=== PATIENT | female | born 1960 | race Caucasian/White ===

== ENCOUNTER 2018-09-09 14:00 | Inpatient (IN) | payer OTHER ==
[~2018-09-09] VITALS: Ht 170.2 cm; Wt 55.8 kg
[2018-09-09 14:00] VITALS: BP 108/62
--- NOTE | 2018-09-09 14:15 | NUR ---
BIBA FOR SIEZURE. PER MEDIC PT HAD 1 SIEZURE LASTING 40 SECONDS, STAFF UNABLE TO TO TELL WHAT TYPE OF SIEZURE PT HAD. PT FIRST SIEZURE. PT NON-VERBAL, UNCONTROLLED LEG MOVEMENT. GCS 10. SIEZURE PRECAUTION IN PLACE. BED IS DOWN, LOCKED, BED RAIL X 2, ERMD NOTIFIED. MEDHX:WENNICKE'S ENCEPHALOPATHY, PSYCHOSIS, DEPRESSION, GBS, GERD, SUBSTANCE ABUSE, RX:ATIVAN, BENZOTROPIN, LACTULOSE, RESPERDAL, PANTOPRAZOLE, ZOLOFT
--- NOTE | 2018-09-09 14:16 | NUR ---
PT ON 2 L NC
[2018-09-09] MEDS ORDERED: levETIRAcetam 1,000 MG in NACL 0.9% 100 ML IV ONE (15:05)
--- NOTE | 2018-09-09 15:26 | NUR ---
XRAY AT BEDSIDE
[2018-09-09 15:31] LABS: BASOPHILS % (AUTO) 0.2 % (0.0-2.0); EOSINOPHILS % (AUTO) 0.3 % (0.0-4.0); HEMATOCRIT 40.5 % (36-48); HEMOGLOBIN 13.7 g/dL (12.0-16.0); LYMPHOCYTES # (AUTO) 1.5 K/uL (2.5-16.5); MEAN CORPUSCULAR HEMOGLOBIN 32 pg (27-31); MEAN CORPUSCULAR HGB CONC 34 g/dL (33-37); MEAN CORPUSCULAR VOLUME 94.4 fL (80-94); MONOCYTES # (AUTO) 0.3 K/uL (0.8-1.0); MONOCYTES % (AUTO) 4.1 % (1.7-9.3); NEUTROPHILS # (AUTO) 5.7 K/uL (1.8-7.7); NEUTROPHILS % (AUTO) 75.4 % (42.2-75.2); PLATELET COUNT (AUTO) 217 K/uL (140-450); RED BLOOD CELL COUNT(AUTO) 4.29 MIL/uL (4.20-5.40); RED CELL DISTRIBUTION WIDTH 12.6 % (11.6-13.7); WHITE BLOOD COUNT (AUTO) 7.6 K/uL (4.8-10.8)
[2018-09-09] MEDS ORDERED: levETIRAcetam 100 MG/ML VIAL IV ONE ×2 (15:33→15:39)
[2018-09-09 15:36] LABS: ANION GAP 14.4 (8-16); CARBON DIOXIDE 25.9 mmol/L (21-32); CREATININE 0.6 mg/dL (0.6-1.3); POTASSIUM 4.3 mmol/L (3.5-5.1)
[2018-09-09 15:42] LABS: ALBUMIN 3.4 g/dL (3.4-5.0); TOTAL BILIRUBIN 0.5 mg/dL (0.0-1.0)
--- NOTE | 2018-09-09 15:52 | NUR ---
URINE COLLECTED VIA STRAIGHT CATH
--- NOTE | 2018-09-09 19:12 | NUR ---
Patient will be admitted to care of [facility]. Admited to tele. Will go to room 199b. Belongings list completed. Report to yasemin francisco.
[2018-09-09 19:15] VITALS: BP 120/81
--- NOTE | 2018-09-09 19:15 | NUR ---
RECEIVED REPORT FROM ER NURSE. PATIENT IN CHRONIC VEGETATIVE STATE AND NON-VERBAL. RESPIRATION EVEN UNLABORED ON O2 2L VIA NC. SKIN IS WARM AND DRY. IV PATENT AND INTACT. UNABLE TO OBTAINED INFORMATION DUE TO PATIENT CONDITION. TRIED CALLING THE SNF FACILITY TO OBTAIN MORE INFORMATION REGARDING PATIENT PAST MEDICAL HISTORY. NO RESPONSE AT THIS MOMENT. WILL CONTINUE TO FOLLOW UP. ALL SAFETY MEASURES ARE IN PLACE. SEIZURES PRECAUTION IN PLACE. SIDE RAILS PADDED. FALL RISK PROTOCOL IN PLACE. BED ALARM ON. BED IS AT LOW POSITION. CALL LIGHT WITHIN REACH. WILL CONTINUE TO MONITOR.
[2018-09-09] MEDS ORDERED: ONDANSETRON 4 MG/2 ML VIAL IVP PRN (20:10)
[2018-09-09] MEDS ORDERED: HYDROcodone/APAP 5/325 MG 1 TAB TAB PO PRN (20:10)
[2018-09-09] MEDS ORDERED: ACETAMINOPHEN 325 MG TAB PO PRN (20:10)
--- NOTE | 2018-09-09 21:00 | NUR ---
PATIENT SLEEPING RESPIRATION EVEN UNLABORED ON ROOM AIR. NO DISTRESS NOTED. WILL CONTINUE TO MONITOR.
--- NOTE | 2018-09-09 23:58 | NUR ---
CHECKED PATIENT. VITALS WERE TAKEN. PATIENT CONDITION STABLE. NO DISTRESS NOTED. ALL SAFETY MEASURES ARE IN PLACE. WILL CONTINUE TO MONITOR.
[2018-09-10] VITALS: BP 138/63
--- NOTE | 2018-09-10 01:47 | NUR ---
CHECKED PATIENT. PATIENT SLEEPING RESPIRATION EVEN UNLABORED ON O2 2L VIA NC. NO DISTRESS NOTED AT THIS TIME. WILL CONTINUE TO MONITOR.
[2018-09-10 04:00] VITALS: BP 88/58
--- NOTE | 2018-09-10 04:00 | NUR ---
VITALS WERE TAKEN. PATIENT SLEEPING RESPIRATION EVEN UNLABORED ON O2 2L NC. NO DISTRESS NOTED. WILL CONTINUE TO MONITOR.
--- NOTE | 2018-09-10 06:29 | NUR ---
RECHECKED PATIENT VITALS BP 92/55 T 98 SPO2 96 RR 16 P 58, NO DISTRESS NOTED. WILL CONTINUE TO MONITOR
--- NOTE | 2018-09-10 07:10 | NUR ---
RECEIVED PT REPORT FROM PRODUCTION OPERATIONS MANAGER NURSE. PT IS ASLEEP, ON 2 L O2 NC. NO S/S OF ACUTE DISTRESS NOTED AT THIS TIME. SKIN IS INTACT. PT HAS A RFA IV SITE ON 20 G, SALINE LOCKED AT THIS TIME. PT IS NONVERBAL AND IN CHRONIC VEGETATIVE STATE. SEIZURE AND FALL PRECAUTIONS IN PLACE. CALL LIGHT IS WITHIN REACH. WILL CONTINUE TO MONITOR PT.
[2018-09-10 07:20] LABS: BASOPHILS % (AUTO) 0.1 % (0.0-2.0); EOSINOPHILS # (AUTO) 0.1 K/uL (0-0.4); EOSINOPHILS % (AUTO) 0.5 % (0.0-4.0); HEMATOCRIT 37.5 % (36-48); HEMOGLOBIN 12.7 g/dL (12.0-16.0); LYMPHOCYTES # (AUTO) 2.6 K/uL (2.5-16.5); LYMPHOCYTES % (AUTO) 23.9 % (20.5-51.1); MEAN CORPUSCULAR HEMOGLOBIN 32 pg (27-31); MEAN CORPUSCULAR HGB CONC 34 g/dL (33-37); MEAN CORPUSCULAR VOLUME 93.7 fL (80-94); MONOCYTES # (AUTO) 1.1 K/uL (0.8-1.0); MONOCYTES % (AUTO) 10.1 % (1.7-9.3); NEUTROPHILS # (AUTO) 7.2 K/uL (1.8-7.7); NEUTROPHILS % (AUTO) 65.4 % (42.2-75.2); PLATELET COUNT (AUTO) 216 K/uL (140-450); RED BLOOD CELL COUNT(AUTO) 4.01 MIL/uL (4.20-5.40); RED CELL DISTRIBUTION WIDTH 12.4 % (11.6-13.7)
--- NOTE | 2018-09-10 07:21 | NUR ---
ENDORSED PATIENT TO DAY SHIFT NURSE FOR CONTINUITY OF CARE. PATIENT STABLE AT THIS TIME
[2018-09-10 07:49] LABS: ANION GAP 11.8 (8-16); CARBON DIOXIDE 27.3 mmol/L (21-32); CREATININE 0.6 mg/dL (0.6-1.3); POTASSIUM 4.1 mmol/L (3.5-5.1)
[2018-09-10 08:00] VITALS: BP 95/61
[2018-09-10 12:00] VITALS: BP 107/77
--- NOTE | 2018-09-10 12:30 | NUR ---
PT EATING LUNCH WITH ASSISTANCE FROM HIS DAUGHTER. PT ATE 95% OF HIS LUNCH. Addendum: 09/10/18 at 1358 by Floridalma Khanna RN CHARTED ON WRONG PT
--- NOTE | 2018-09-10 12:35 | NUR ---
PT EATING LUNCH WITH ASSISTANCE FROM UZAIR
--- NOTE | 2018-09-10 13:55 | NUR ---
PT HAS DISCHARGED. DC INSTRUCTIONS WERE GIVEN TO PT AND HIS DAUGHTER, THEY VERBALIZED UNDERSTANDING OF DC TEACHING. PRESCRIPTIONS GIVEN. IV SITE WAS DC'D, WRIST BANDS REMOVED. PT LEFT WITH ALL HIS BELONGINGS WITH HIS DAUGHTER IN STABLE CONDITION. Addendum: 09/10/18 at 1358 by Floridalma Khanna RN CHARTED ON WRONG PT
[2018-09-10 16:00] VITALS: BP 94/68
[2018-09-10] MEDS: LORazepam 2 MG/ML VIAL IVP PRN (17:13)
[2018-09-10] MEDS: PIPER/TAZO 3.375GM/D5W PREMIX 50 ML IV SCH ×2 (17:14→23:14)
--- NOTE | 2018-09-10 18:10 | NUR ---
OBTAINED URINE SAMPLE VIA STRAIGHT CATH AND SENT TO LAB PER MD ORDER.
--- NOTE | 2018-09-10 18:20 | NUR ---
PT EATING DINNER WITH ASSISTANCE FROM INTERFACE CONTROL OFFICER. NO S/S OF ACUTE DISTRESS AT THIS TIME, CALL LIGHT IS WITHIN REACH.
[2018-09-10 18:42] LABS: APPEARANCE,URINE CLEAR (CLEAR); BILIRUBIN,URINE NEGATIVE (NEGATIVE); BLOOD, URINE NEGATIVE (NEGATIVE); COLOR,URINE YELLOW (YELLOW); LEUKOCYTE ESTERASE ,URINE NEGATIVE (NEGATIVE); NITRITE, URINE POSITIVE (NEGATIVE); UGLUCOSE NEGATIVE (NEGATIVE)
--- NOTE | 2018-09-10 19:10 | NUR ---
PT ENDORSED TO TEACHING AIDE NURSE IN STABLE CONDITION.
--- NOTE | 2018-09-10 19:20 | NUR ---
RECEIVED ENDORSEMENT FROM AM SHIFT RN; PATIENT A/Ox1, UNABLE TO COMMUNICATE, BEDBOUND AND IN HIGH FOWLERS POSITION. INTRODUCED SELF AND UPDATED BOARD. NO SOB OR DISTRESS NOTED; PATIENT ON O2 AT 2LPM VIA NASAL CANNULA. IV SITE ON RIGHT FOREARM, 20 GAUGE, RUNNING IVF AT 10mL/HR. SKIN INTACT. BED IN THE LOWEST POSITION, CALL LIGHT WITHIN REACH. INITIAL ASSESSMENT DONE. WILL CONTINUE TO MONITOR.
[2018-09-10 20:00] VITALS: BP 104/65
--- NOTE | 2018-09-10 20:30 | NUR ---
VITALS TAKEN, NO DISTRESS NOTED.
--- NOTE | 2018-09-10 22:00 | NUR ---
PATIENT WAS CLEANED, LINENS AND CHUX CHANGED, REPOSITIONED. TOLERATED WELL.
--- NOTE | 2018-09-10 23:30 | NUR ---
VITALS TAKEN, BP 73/42. PLACED PATIENT IN [place] POSITION. WILL CONTINUE TO MONITOR. Addendum: 09/11/18 at 0006 by Agustín Alamo RN IV ZOSYN ALSO GIVEN AT THIS TIME
[2018-09-11] VITALS: BP 95/58
--- NOTE | 2018-09-11 00:01 | NUR ---
VITALS RECHECKED, BP 95/58. WILL CONTINUE TO MONITOR.
--- NOTE | 2018-09-11 00:47 | NUR ---
RECHECKED BP, 98/69. WILL CONTINUE TO MONITOR.
--- NOTE | 2018-09-11 02:10 | NUR ---
FREQUENT CHECKS MADE. PATIENT ASLEEP, EYES CLOSED, VISIBLE CHEST RISE AND FALL NOTED.
--- NOTE | 2018-09-11 03:50 | NUR ---
VITALS TAKEN, NO DISTRESS NOTED. BP 96/63. WILL CONTINUE TO MONITOR.
[2018-09-11 03:56] VITALS: BP 96/63
--- NOTE | 2018-09-11 04:50 | NUR ---
PATIENT CLEANED, CHUX AND LINENS WERE CHANGED, REPOSITIONED. TOLERATED WELL.
[2018-09-11] MEDS: PIPER/TAZO 3.375GM/D5W PREMIX 50 ML IV SCH ×3 (05:10→17:33)
[2018-09-11 07:15] LABS: BASOPHILS % (AUTO) 0.3 % (0.0-2.0); EOSINOPHILS # (AUTO) 0.1 K/uL (0-0.4); EOSINOPHILS % (AUTO) 1.1 % (0.0-4.0); HEMATOCRIT 37.3 % (36-48); HEMOGLOBIN 12.6 g/dL (12.0-16.0); LYMPHOCYTES # (AUTO) 2.4 K/uL (2.5-16.5); LYMPHOCYTES % (AUTO) 39.8 % (20.5-51.1); MEAN CORPUSCULAR HEMOGLOBIN 32 pg (27-31); MEAN CORPUSCULAR HGB CONC 34 g/dL (33-37); MONOCYTES # (AUTO) 0.7 K/uL (0.8-1.0); MONOCYTES % (AUTO) 12.4 % (1.7-9.3); NEUTROPHILS # (AUTO) 2.8 K/uL (1.8-7.7); NEUTROPHILS % (AUTO) 46.4 % (42.2-75.2); PLATELET COUNT (AUTO) 206 K/uL (140-450); RED BLOOD CELL COUNT(AUTO) 3.93 MIL/uL (4.20-5.40); RED CELL DISTRIBUTION WIDTH 12.8 % (11.6-13.7)
--- NOTE | 2018-09-11 07:15 | NUR ---
RECEIVED PT REPORT FROM COMPOSITION PROFESSOR NURSE. PT IS ASLEEP, NO S/S OF ACUTE DISTRESS OR SOB NOTED. SEIZURE AND FALL PRECAUTIONS ARE IN PLACE. SKIN IS INTACT, PT IS ON 2L O2 NC. IV SITE ON RFA, 20 G, SALINE LOCKED. CALL LIGHT IS WITHIN REACH. WILL CONTINUE TO MONITOR.
--- NOTE | 2018-09-11 07:20 | NUR ---
ENDORSED PATIENT TO AM SHIFT RN; PATIENT IN STABLE CONDITION.
[2018-09-11] MEDS ORDERED: MULT15LI1 GT (07:38)
[2018-09-11] MEDS ORDERED: SERT25TA PO (07:38)
[2018-09-11] MEDS ORDERED: RIS1 PO (07:38)
[2018-09-11] MEDS ORDERED: [UNRECOGNIZED DRUG - CODE] (07:38)
[2018-09-11 08:00] VITALS: BP 92/61
[2018-09-11 08:09] LABS: ANION GAP 11.9 (8-16); CARBON DIOXIDE 27.2 mmol/L (21-32); CREATININE 0.8 mg/dL (0.6-1.3); POTASSIUM 4.1 mmol/L (3.5-5.1); TOTAL BILIRUBIN 1.5 mg/dL (0.0-1.0)
--- NOTE | 2018-09-11 08:29 | NUR ---
PATIENT HAS BEEN SCREENED AND CATEGORIZED MODERATE NUTRITION RISK. PATIENT WILL BE SEEN WITHIN 3-5 DAYS OF ADMISSION. 09/12/18ROXANA CONNER RD
[2018-09-11 12:00] VITALS: BP 94/66
--- NOTE | 2018-09-11 12:28 | NUR ---
PT ATE 100% OF HER LUNCH WITH ASSISTANCE FROM TUGBOAT MATE.
--- NOTE | 2018-09-11 13:05 | NUR ---
SCHEDULED IV ZOSYN HUNG. PT IS IN NO APPARENT DISTRESS, NO SOB. WILL CONTINUE TO MONITOR.
[2018-09-11] MEDS: DEXT 5% / NACL 0.45% 1,000 ML IV SCH ×2 (14:21→23:50)
[2018-09-11 16:00] VITALS: BP 107/64
[2018-09-11] MEDS ORDERED: SODIUM CHLORIDE 3% 4 ML SOL INH SCH (16:15)
--- NOTE | 2018-09-11 16:50 | NUR ---
LOC CONFUSED HHN THERAPY GIVEN ORDERED FIR SPUTUM INDUCTION SPECIMEN CUP AT BEDSIDE NADER/RN AWARE
[2018-09-11] MEDS: LORazepam 2 MG/ML VIAL IVP PRN (16:58)
--- NOTE | 2018-09-11 18:24 | NUR ---
PT'S IV DISLODGED. NEW IV INSERTED, L WRIST 22 GAUGE. PATENT AND INTACT.
--- NOTE | 2018-09-11 19:20 | NUR ---
PT ENDORSED TO PUBLIC STENOGRAPHER IN STABLE CONDITION.
--- NOTE | 2018-09-11 19:35 | NUR ---
RECEIVED FROM AM RN IN BED SLEEPING. PT. WITH 02 AT 2LPM/NC. DX. OF SEIZURE DISORDER. TELEMETRY MONITORING. WITH PADDED SIDE RAILS FOR SEIZURE PROTECTION. IVF SITE INTACT AND NEWLY INSERTED BY AM RN TO LEFT HAND #22 WITH GOOD BLOOD RETURN. PT. MOANS WHEN TOUCHED. REFUSED TO OPEN EYES. NEEDS WILL BE ANTICIPATED AND WILL BE MET.
[2018-09-11 21:07] VITALS: BP 90/60
--- NOTE | 2018-09-11 23:30 | NUR ---
PT. CLEANED UP BY HAIR SPECIALIST AND NURSE . IVF SITE TO LEFT WRIST #[address] AND WITH GOOD BLOOD RETURN. INCONTINENT. KEPT CLEAN AND DRY. RESISTANT TO PERSONAL HYGIENE CARE. MOANS AND DOES NOT VERBALIZE . TURNED TO SIDES Q 2H WITH PILLOW SUPPORT TO PRESSURE AREAS. TELEMETRY MONITORING. NEEDS WILL BE ANTICIPATED AND MET.
[2018-09-12] VITALS (7 sets, daily range): BP systolic 93–129; BP diastolic 58–86
[2018-09-12] MEDS: PIPER/TAZO 3.375GM/D5W PREMIX 50 ML IV SCH ×4 (00:01→18:04)
--- NOTE | 2018-09-12 02:06 | NUR ---
PT. FOR CT SCAN BRAIN ORDERED. MEGHAN SONOSCOPE OPERATOR IN HERE TO DIRECTOR OF QUALITY CONTROL PT.
--- NOTE | 2018-09-12 03:04 | NUR ---
PT. BACK FROM CT SCAN HEAD. HOOKED BACK IV FLUID. NO RESTLESSNESS. SLEPT BACK EASILY.
--- NOTE | 2018-09-12 04:40 | NUR ---
SLEEPING AT THIS TIME. WAKES UP WHEN TOUCHED. GETS UPSET WHEN AWAKENED. TELEMETRY MONITORING. NEEDS ANTICIPATED.
[2018-09-12] MEDS: DEXT 5% / NACL 0.45% 1,000 ML IV SCH ×2 (04:44→21:17)
--- NOTE | 2018-09-12 06:22 | NUR ---
BEEN SLEEPING WELL THIS SHIFT. CT SCAN OF HEAD WITHOUT CONTRAST DONE. AM PERSONAL HYGIENE RENDERED. NEEDS ANTICIPATED AND MET. WILL ENDORSE TO THE NEXT RN FOR CONTINUITY OF CARE. TELEMETRY MONITORING.
--- NOTE | 2018-09-12 07:00 | NUR ---
RECEIVED REPORT FROM NIGHT RN. PT RESTING IN BED. AAOX4. NO S/S OF ACUTE DISTRESS. FLACC-0. IV SITE PATENT AND INTACT. PT ON RA. CALL LIGHT WITHIN REACH. SAFETY MEASURES ENSURED. WILL CONTINUE TO MONITOR. Addendum: 09/12/18 at 1025 by Olayinka Flores RN AAOX1
[2018-09-12 07:25] LABS: BASOPHILS % (AUTO) 0.4 % (0.0-2.0); EOSINOPHILS # (AUTO) 0.1 K/uL (0-0.4); EOSINOPHILS % (AUTO) 1.1 % (0.0-4.0); HEMATOCRIT 36.8 % (36-48); HEMOGLOBIN 12.3 g/dL (12.0-16.0); LYMPHOCYTES # (AUTO) 2.2 K/uL (2.5-16.5); LYMPHOCYTES % (AUTO) 40.1 % (20.5-51.1); MEAN CORPUSCULAR HEMOGLOBIN 32 pg (27-31); MEAN CORPUSCULAR HGB CONC 34 g/dL (33-37); MEAN CORPUSCULAR VOLUME 94.4 fL (80-94); MONOCYTES # (AUTO) 0.6 K/uL (0.8-1.0); MONOCYTES % (AUTO) 11.4 % (1.7-9.3); NEUTROPHILS # (AUTO) 2.6 K/uL (1.8-7.7); PLATELET COUNT (AUTO) 202 K/uL (140-450); RED CELL DISTRIBUTION WIDTH 12.5 % (11.6-13.7); WHITE BLOOD COUNT (AUTO) 5.4 K/uL (4.8-10.8)
[2018-09-12 07:51] LABS: ANION GAP 13.2 (8-16); CARBON DIOXIDE 26.1 mmol/L (21-32); CREATININE 0.7 mg/dL (0.6-1.3); POTASSIUM 4.3 mmol/L (3.5-5.1)
--- NOTE | 2018-09-12 10:07 | NUR ---
PT RESTING IN BED. NO S/S OF ACUTE DISTRESS. FLACC-0. CALL LIGHT WITHIN REACH. SAFETY MEASURES ENSURED. WILL CONTINUE TO MONITOR.
--- NOTE | 2018-09-12 11:43 | NUR ---
Licensing Registration Examiner Note: I called and spoke with conference service coordinator Norma from [facility] . Per Norma, patient is on a 7 day bed hold and is one of their shelter patients. She stated patient has been living at their facility since 07/14/17 and she does not know if patient has an existing Advance Directive for health care. I spoke with Lissette from Medical Records Dept at [facility], she stated she will find out if patient has an existing Advance Directive for health care and call me back. I provided Lissette with my contact information.
--- NOTE | 2018-09-12 13:49 | NUR ---
Jewel Waxer Note Per Lissette from Medical Records Dept at [facility] , patient does not have an existing Advance Directive for health care. I called patient's son Jaycob to discuss patient's tentative discharge plan, no answer, left message (please see MD's order regarding Jaycob's request).
--- NOTE | 2018-09-12 13:50 | NUR ---
PATIENT RESTLESS IN BED. NO S/S OF ACUTE DISTRESS. PT'S IV INFILTRATED IVF. NO REDNESS OR PAIN ON PALPATION. CALL LIGHT WITHIN REACH. SAFETY MEASURES ENSURED. WILL CONTINUE TO MONITOR
[2018-09-12] MEDS: LORazepam 2 MG/ML VIAL IVP PRN (15:31)
--- NOTE | 2018-09-12 16:00 | NUR ---
Instructor Trainer Canine Service Note: I called and spoke with Makeda from [facility] , no middle or intermediate school principal beds available at this time. I called and spoke with Robert from [facility] , no alf beds available at this time. I received a call from patient's son Jaycob . I explained to him I had contacted [facility] and [facility] and was informed they do not have any alf beds available currently. I explained to him these type of beds are limited. He verbalized understanding. He stated he is in agreement with patient returning to [facility] upon discharge. I called and spoke with patient's brother Fer Keith , he stated patient does not have an existing Advance Directive for health care and he is okay with patient's son Jaycob making patient's medical decisions.
--- NOTE | 2018-09-12 17:51 | NUR ---
PT RESTING IN BED. NO S/S OF ACUTE DISTRESS. FLACC-0. CALL LIGHT WITHIN REACH. SAFETY MEASURES ENSURED. WILL CONTINUE TO MONITOR.
--- NOTE | 2018-09-12 19:30 | NUR ---
RECEIVED FROM AM RN IN BED AWAKE . NONE VERBAL. NEEDS WILL BE ANTICIPATED AND MET. TOTAL CARE. WITH PADDED SIDERAILS FOR SEIZURE PRECAUTIONS. NEW IVF SITE INTACT AND WITH GOOD BLOOD RETURN.
--- NOTE | 2018-09-12 22:33 | NUR ---
PT. SO AWAKE AND MAKING NOISE . APHASIC. PT. TURNED TO SIDE BY CNAS AND CLEANED RT WET WITH URINE. NEEDS WILL BE ANTICIPATED AND WILL BE MET. TOTAL CARE. BED ALARM ON. TELEMETRY MONITORING.
[2018-09-13] MEDS: PIPER/TAZO 3.375GM/D5W PREMIX 50 ML IV SCH ×4 (00:07→17:52)
--- NOTE | 2018-09-13 00:08 | NUR ---
PT. SLEEPING AT THIS TIME.
--- NOTE | 2018-09-13 02:00 | NUR ---
PT. CARE RENDERED BY SOLAR ENERGY ENGINEER RT WET BED LINEN FROM URINE. TOTAL CARE. WENT BACK TO SLEEP EASILY.
[2018-09-13 04:00] VITALS: BP 116/80
--- NOTE | 2018-09-13 04:00 | NUR ---
PT. SLEEPING WELL AT THIS TIME. NO SOB. WAKES UP EASILY WHEN TOUCHED. TOTAL CARE.
[2018-09-13] MEDS: DEXT 5% / NACL 0.45% 1,000 ML IV SCH ×3 (05:32→22:49)
--- NOTE | 2018-09-13 05:50 | NUR ---
PT. AM PERSONAL HYGIENE RENDERED BY CNAS. BED LINEN CHANGED RT HAD URINATED . KEPT CLEAN , COMFORTABLE AND DRY. COMFORTABLE NOW. WENT BACK TO SLEEP AFTER. NO SEIZURES THIS SHIFT. TELEMETRY MONITORING.
--- NOTE | 2018-09-13 06:29 | NUR ---
PT. TOTAL CARE. APHASIC. NO SEIZURES NOTED THIS SHIFT. NEEDS ANTICIPATED AND MET. AFEBRILE. IVF SITE TO RIGHT FOREARM WITH GOOD BLOOD RETURN. TURNED TO SIDES Q 2H. PILLOW SUPPORT TO PRESSURE AREAS. BED ALARM ON ALL NIGHT. WILL ENDORSE TO AM RN FOR CONTINUITY OF CARE.
[2018-09-13 07:17] LABS: BASOPHILS % (AUTO) 0.3 % (0.0-2.0); EOSINOPHILS # (AUTO) 0.1 K/uL (0-0.4); EOSINOPHILS % (AUTO) 1.1 % (0.0-4.0); HEMATOCRIT 40.1 % (36-48); HEMOGLOBIN 13.5 g/dL (12.0-16.0); LYMPHOCYTES # (AUTO) 1.7 K/uL (2.5-16.5); LYMPHOCYTES % (AUTO) 34.8 % (20.5-51.1); MEAN CORPUSCULAR HEMOGLOBIN 32 pg (27-31); MEAN CORPUSCULAR HGB CONC 34 g/dL (33-37); MEAN CORPUSCULAR VOLUME 93.8 fL (80-94); MONOCYTES # (AUTO) 0.5 K/uL (0.8-1.0); MONOCYTES % (AUTO) 10.1 % (1.7-9.3); NEUTROPHILS # (AUTO) 2.6 K/uL (1.8-7.7); NEUTROPHILS % (AUTO) 53.7 % (42.2-75.2); PLATELET COUNT (AUTO) 215 K/uL (140-450); RED BLOOD CELL COUNT(AUTO) 4.27 MIL/uL (4.20-5.40); RED CELL DISTRIBUTION WIDTH 12.6 % (11.6-13.7); WHITE BLOOD COUNT (AUTO) 4.9 K/uL (4.8-10.8)
[2018-09-13 07:18] LABS: CARBON DIOXIDE 26.1 mmol/L (21-32); CREATININE 0.7 mg/dL (0.6-1.3); POTASSIUM 4.1 mmol/L (3.5-5.1)
--- NOTE | 2018-09-13 07:34 | NUR ---
RECEIVED BEDSIDE REPORT FROM COMMERCIAL PRINT SALESMAN RN FOR CONTINUITY OF CARE. PT IN STABLE CONDITION. FLACC 0. NONVERBAL PER COMMERCIAL PRINT SALESMAN RN. AOX1. NO S/S DISTRESS. RESPIRATIONS EVEN AND UNLABORED. ACTIVE BS IN ALL QUADRANTS. ABDOMEN SOFT AND NON-DISTENDED. SKIN INTACT. PER COMMERCIAL PRINT SALESMAN RN, PT IS BEDBOUND AND INCONTINENT. IV SITE PATENT AND ASYMPTOMATIC, INFUSING IVF PER MD ORDERS. ALL SAFETY PRECAUTIONS IN PLACE, WILL CONTINUE TO MONITOR.
[2018-09-13 08:00] VITALS: BP 112/73
--- NOTE | 2018-09-13 11:17 | NUR ---
HR GOES DOWN TO 40S. PT ABLE TO BE AROUSED AND HR GOES UP. VITALS STABLE BP 103/65, HR 53, RR 18, TEMP 97.6 AXILLARY, SPO2 95% ON 2L. DEAN OF INSTRUCTION HAS ALREADY BEEN CONSULTED FOR BRADYCARDIA.
--- NOTE | 2018-09-13 11:35 | NUR ---
PT RESTING IN BED, RESPIRATIONS EVEN AND UNLABORED. AROUSABLE BY TOUCH. WHEN ASKED IF SHE IS OKAY, PATIENT REPLIED "YES".
[2018-09-13 12:00] VITALS: BP 103/65
--- NOTE | 2018-09-13 12:46 | NUR ---
PT TURNED AND CLEANED IN BED. ALL SAFETY PRECAUTIONS IN PLACE, WILL CONTINUE TO MONITOR.
--- NOTE | 2018-09-13 13:52 | NUR ---
PT'S HR IN HIGH 40S NOW. WILL CONTINUE TO MONITOR. PT RESTING IN BED, RESPIRATIONS EVEN AND UNLABORED.
--- NOTE | 2018-09-13 14:40 | NUR ---
09/13/18 RD INITIAL ASSESSMENT COMPLETED PLEASE REFER TO NUTRITION ASSESSMENT UNDER CARE ACTIVITY FOR ESTIMATED NUTRITIONAL NEEDS. 1. CONTINUE REGULAR DIET TOLERATED 2. RECOMMEND THIAMIN, VITAMIN B1 SUPPLEMENTATION FOR WERNICKE�S ENCEPHALOPATHY 3. RD TO FOLLOW-UP 3-5 DAYS, MODERATE RISK ROXANA CONNER, RD
[2018-09-13 16:00] VITALS: BP 114/73
--- NOTE | 2018-09-13 16:14 | NUR ---
PATIENT AWAKE IN BED, STARING AT TV. VITALS STABLE. HR 74 NOW. ALL SAFETY PRECAUTIONS IN PLACE, WILL CONTINUE TO MONITOR.
--- NOTE | 2018-09-13 19:20 | NUR ---
ENDORSED POC TO MORTISING MACHINE OPERATOR RN. PT IN STABLE CONDITION.
--- NOTE | 2018-09-13 19:35 | NUR ---
RECEIVED BEDSIDE REPORT FROM DAY SHIFT NURSE FOR CONTINUITY OF CARE. PATIENT AWAKE, NONVERBAL AOX1. NO S/S DISTRESS. RESPIRATION EVEN UNLABORED ON O2 2L VIA NC. SKIN IS WARM AND DRY. IV INTACT AND PATENT. PLAN OF CARE WAS DISCUSSED. ALL SAFETY MEASURES IN PLACE. SEIZURE AND FALL PRECAUTION ARE IN PLACE. BED IS AT LOW POSITION. CALL LIGHT WITHIN REACH. WILL CONTINUE TO MONITOR.
[2018-09-13 20:00] VITALS: BP 96/75
--- NOTE | 2018-09-13 20:00 | NUR ---
INITIAL ASSESSMENT DONE. VITALS WERE TAKEN. PATIENT CONDITION STABLE. RT AT BEDSIDE. PATIENT SATING 94-96% ON ROOM AIR. NO NEED FOR O2 ADMINISTRATION AT THIS TIME. WILL CONTINUE TO MONITOR.
--- NOTE | 2018-09-13 21:00 | NUR ---
DR. Steve PATRICIA. ORDER TO CONTINUE HOME MEDS DURING HOSPITAL STAY.
--- NOTE | 2018-09-13 22:40 | NUR ---
PATIENT IS RESTLESS AND AGITATED. PRN ATIVAN ADMINISTERED PER ORDER. WILL CONTINUE TO MONITOR.
[2018-09-13] MEDS: LORazepam 2 MG/ML VIAL IVP PRN (22:48)
--- NOTE | 2018-09-13 23:00 | NUR ---
IV INFILTRATED. NO ACTIVE BLEEDING SEEN. CANNULA IS INTACT. NEW IV INSERTED. RIGHT HAND 24 G. WILL CONTINUE TO MONITOR.
[2018-09-14] VITALS: BP 124/67
--- NOTE | 2018-09-14 | NUR ---
VITALS WERE TAKEN. PATIENT CONDITION STABLE. RESPIRATION EVEN UNLABORED ON ROOM AIR. NO DISTRESS NOTED. WILL CONTINUE TO MONITOR.
--- NOTE | 2018-09-14 02:00 | NUR ---
CHECKED PATIENT. PATIENT SLEEPING RESPIRATION EVEN UNLABORED ON ROOM AIR. NO DISTRESS NOTED. WILL CONTINUE TO MONITOR.
[2018-09-14 04:00] VITALS: BP 115/81
--- NOTE | 2018-09-14 04:00 | NUR ---
VITALS WERE TAKEN. PATIENT CONDITION STABLE. NO DISTRESS NOTED. WILL CONTINUE TO MONITOR.
[2018-09-14 07:16] LABS: BASOPHILS % (AUTO) 0.3 % (0.0-2.0); EOSINOPHILS # (AUTO) 0.1 K/uL (0-0.4); EOSINOPHILS % (AUTO) 1.3 % (0.0-4.0); HEMATOCRIT 40.6 % (36-48); HEMOGLOBIN 13.7 g/dL (12.0-16.0); LYMPHOCYTES # (AUTO) 1.9 K/uL (2.5-16.5); LYMPHOCYTES % (AUTO) 30.6 % (20.5-51.1); MEAN CORPUSCULAR HEMOGLOBIN 32 pg (27-31); MEAN CORPUSCULAR HGB CONC 34 g/dL (33-37); MEAN CORPUSCULAR VOLUME 93.6 fL (80-94); MONOCYTES # (AUTO) 0.6 K/uL (0.8-1.0); MONOCYTES % (AUTO) 9.5 % (1.7-9.3); NEUTROPHILS # (AUTO) 3.6 K/uL (1.8-7.7); NEUTROPHILS % (AUTO) 58.3 % (42.2-75.2); PLATELET COUNT (AUTO) 222 K/uL (140-450); RED BLOOD CELL COUNT(AUTO) 4.34 MIL/uL (4.20-5.40); RED CELL DISTRIBUTION WIDTH 12.4 % (11.6-13.7); WHITE BLOOD COUNT (AUTO) 6.2 K/uL (4.8-10.8)
--- NOTE | 2018-09-14 07:22 | NUR ---
ENDORSED PATIENT TO DAY SHIFT NURSE FOR CONTINUITY OF CARE. PATIENT CONDITION STABLE.
--- NOTE | 2018-09-14 07:25 | NUR ---
RECEIVED BEDSIDE REPORT FROM OTOLARYNGOLOGY TEACHER RN FOR CONTINUITY OF CARE. PT IN STABLE CONDITION. FLACC 0. AOX1. PATIENT IS MINIMALLY VERBAL. AWAKE AT THIS TIME, EYES OPENING SPONTANEOUSLY. NO S/S DISTRESS. RESPIRATIONS EVEN AND UNLABORED. ACTIVE BS IN ALL QUADRANTS. ABDOMEN SOFT AND NON-DISTENDED. SKIN INTACT. PT IS BEDBOUND AND INCONTINENT. IV SITE PATENT AND ASYMPTOMATIC, INFUSING IVF PER MD ORDERS. ALL SAFETY PRECAUTIONS IN PLACE, WILL CONTINUE TO MONITOR.
[2018-09-14 07:43] LABS: ANION GAP 13.7 (8-16); CARBON DIOXIDE 26.4 mmol/L (21-32); CREATININE 0.6 mg/dL (0.6-1.3); POTASSIUM 4.1 mmol/L (3.5-5.1)
[2018-09-14 08:00] VITALS: BP 117/80
[2018-09-14] MEDS ORDERED: MULTIVITAMIN 1 TAB PO SCH (09:00)
[2018-09-14] MEDS ORDERED: risperiDONE 1 MG TAB PO SCH (09:00)
[2018-09-14] MEDS ORDERED: THIAMINE HCL SCH (09:00)
[2018-09-14] MEDS: DEXT 5% / NACL 0.45% 1,000 ML IV SCH (11:56)
[2018-09-14 12:00] VITALS: BP 112/58
--- NOTE | 2018-09-14 15:14 | NUR ---
Flight Director Note: Per Director RN Josefa, patient is not on isolation. I faxed patient's medical information to [facility]. Per Yuliana from [facility] , patient may return to room 603B any time today, accepting physician is , Primary Care Sales Representative Selena made aware. Primary Care Sales Representative Selena will arrange transportation.
--- NOTE | 2018-09-14 15:46 | NUR ---
Spoke with Amira from [facility] AUTH #[id number] for transportation.
--- NOTE | 2018-09-14 15:54 | NUR ---
Transportation arranged with [facility] AUTH# [id number]. Pt will be picked up from room 119 B at 2000 and transported to [facility] room 603 B. Address [address]. [id number]. Tel. # . Charge nurse Lynda torres
[2018-09-14 16:00] VITALS: BP 111/68
--- NOTE | 2018-09-14 16:00 | NUR ---
PATIENT RESTING IN BED, AROUSBLE BY VOICE. NO S/S DISTRESS. WILL CONTINUE TO MONITOR.
--- NOTE | 2018-09-14 18:29 | NUR ---
CALLED [facility] AND GAVE REPORT TO PLIER WORKER TIA. REVIEWED PT CC, DX, PMHX, CODE STATUS, ALLERGIES, IMAGING, PROCEDURES, MEDICATIONS, AND CONTINUED POC AT [facility]. ANSWERED ALL OF TIA PLIER WORKER'S QUESTIONS.TIA PLIER WORKER VERBALIZED COMPLETE UNDERSTANDING OF PATIENT�S POC.
--- NOTE | 2018-09-14 18:32 | NUR ---
PATIENT IS AOX1, CHRONIC VEGETATIVE STATE. UNABLE TO COMPREHEND D/C INSTRUCTIONS OR SIGN. FLU VACCINE AND PNEUMOVAX UP TO DATE.
--- NOTE | 2018-09-14 19:00 | NUR ---
LEFT MESSAGE FOR PERSON TO NOTIFY KELL [phone] INFORMING OF PLANS TO TRANSFER TO [facility].
--- NOTE | 2018-09-14 19:34 | NUR ---
ENDORSED POC TO MACHINE TOOL REBUILDER RN. PT IN STABLE CONDITION.
--- NOTE | 2018-09-14 19:35 | NUR ---
RECEIVED BEDSIDE REPORT FROM DAY SHIFT NURSE FOR CONTINUITY OF CARE. PATIENT IS AWAKE, AOX1, NON-VERBAL AND FLACC 0. RESPIRATION EVEN UNLABORED ON ROOM AIR. SKIN IS WARM AND DRY. IV PATENT AND INTACT. ALL SAFETY MEASURES ARE IN PLACE. PLAN OF CARE WAS DISCUSSED. BED IS AT LOW POSITION. BED ALARM ON. CALL LIGHT WITHIN REACH. WILL CONTINUE TO MONITOR.
[2018-09-14 20:00] VITALS: BP 102/71
--- NOTE | 2018-09-14 20:00 | NUR ---
PATIENT IS LEAVING TODAY AWAITING FOR CHILD SPECIALIST.
--- NOTE | 2018-09-14 20:30 | NUR ---
PATIENT LEFT THE FACILITY WITH HER BELONGINGS VIA GURNEY WITH 2 PERSONNEL FROM [place]. IV REMOVE TIP INTACT. PATIENT CONDITION IS STABLE.
[2018-09-14] MEDS ORDERED: SERTRALINE 50 MG TAB PO SCH (21:00)
== END 2018-09-14 20:30 | DRG 720 ==
LOC: MED 14:00 → MTU 18:30
PROVIDERS: ADMIT Preventive Medicine Preventive Medicine/Occupational Environmental Medicine; ATTEND Preventive Medicine Preventive Medicine/Occupational Environmental Medicine
DX: A41.9 Sepsis, unspecified organism (principal); J96.00 Acute respiratory failure, unspecified whether with hypoxia or hypercapnia; R40.3 Persistent vegetative state; E51.2 Wernicke's encephalopathy; G40.909 Epilepsy, unspecified, not intractable, without status epilepticus; D72.829 Elevated white blood cell count, unspecified; F32.9 Major depressive disorder, single episode, unspecified; K21.9 Gastro-esophageal reflux disease without esophagitis; G62.9 Polyneuropathy, unspecified; F19.10 Other psychoactive substance abuse, uncomplicated; F09 Unspecified mental disorder due to known physiological condition
CPT/HCPCS: 36415; 70450; 71045; 80048; 80053; 81003; 85025; 85651; 86140; 87040; 87081; 87086; 93005; 94640; 95816; 96365; 99285; C1758; J1953; J2060; J2543; J7030; Q0092

== ENCOUNTER 2022-05-15 14:15 | Inpatient (IN) | payer MEDICAID, OTHER ==
[~2022-05-15] VITALS: Ht 154.9 cm; Wt 62.1 kg
[~2022-05-15 14:15] MED LIST: MULT15LI1 GT; RIS1 PO; SERT25TA PO; [UNRECOGNIZED DRUG - CODE]
[2022-05-15] MEDS ORDERED: NACL 0.9% 1,000 ML IV ONE (14:20)
[2022-05-15] MEDS ORDERED: ACETAMINOPHEN 650 MG SUPP RC ONE (14:40)
[2022-05-15] MEDS ORDERED: PIPERACILLIN/TAZOBACTAM 3.375 GM in DEXTROSE 5% 50 ML IV ONE (15:00)
[2022-05-15] MEDS ORDERED: VANCOMYCIN 1,000 MG in DEXTROSE 5% 250 ML IV ONE (15:00)
[2022-05-15 15:05] LABS: BASOPHILS % (AUTO) 0.5 % (0.0-2.0); HEMATOCRIT 33.4 % (36-48); HEMOGLOBIN 11.3 g/dL (12.0-16.0); LYMPHOCYTES # (AUTO) 0.1 K/uL (2.5-16.5); LYMPHOCYTES % (AUTO) 0.7 % (20.5-51.1); MEAN CORPUSCULAR HEMOGLOBIN 31 pg (27-31); MEAN CORPUSCULAR HGB CONC 34 g/dL (33-37); MEAN CORPUSCULAR VOLUME 92.4 fL (80-94); MONOCYTES # (AUTO) 0.1 K/uL (0.8-1.0); MONOCYTES % (AUTO) 1.3 % (1.7-9.3); NEUTROPHILS % (AUTO) 97.5 % (42.2-75.2); PLATELET COUNT (AUTO) 121 K/uL (140-450); RED BLOOD CELL COUNT(AUTO) 3.61 MIL/uL (4.20-5.40); RED CELL DISTRIBUTION WIDTH 12.9 % (11.6-13.7); WHITE BLOOD COUNT (AUTO) 9.2 K/uL (4.8-10.8)
[2022-05-15 15:06] VITALS: BP 91/59
[2022-05-15 15:20] LABS: PROTHROMBIN TIME 12.7 secs (10.8-13.4)
[2022-05-15 15:27] LABS: ALBUMIN 2.1 g/dL (3.4-5.0); ANION GAP 15.9 (8-16); ASPARTATE AMINOTRANSFERASE 57 U/L (15-37); CARBON DIOXIDE 22.8 mmol/L (21-32); CHLORIDE 109 mmol/L (98-107); CREATININE 1.3 mg/dL (0.6-1.3); GFR ARICAN-AMERICAN 53 mL/min (>90); GLUCOSE 106 mg/dL (74-106); POTASSIUM 3.7 mmol/L (3.5-5.1); SODIUM SERUM 144 mmol/L (136-145); TOTAL BILIRUBIN 0.9 mg/dL (0.0-1.0); UREA NITROGEN, BLOOD 39 mg/dL (7-18)
[2022-05-15] MEDS ORDERED: MAGN400S60 PO (15:39)
[2022-05-15] MEDS ORDERED: SENN-72 PO (15:39)
[2022-05-15] MEDS ORDERED: THIA500T9 PO (15:39)
[2022-05-15] MEDS ORDERED: MULT-2611 PO (15:39)
[2022-05-15] MEDS ORDERED: OLAN2.5T1 PO (15:39)
[2022-05-15] MEDS ORDERED: BACL10TA4 PO (15:39)
[2022-05-15] MEDS ORDERED: FLEPED RC (15:39)
[2022-05-15] MEDS ORDERED: ACET-2619 PO (15:39)
[2022-05-15] MEDS ORDERED: GABA100C PO (15:39)
[2022-05-15] MEDS ORDERED: DIVA125E1 PO (15:39)
[2022-05-15] MEDS ORDERED: VANCOMYCIN 1,000 MG VIAL ONE (15:47)
[2022-05-15] MEDS ORDERED: PIPERACILLIN/TAZOBACTAM 3.375 GM VIAL IV ONE (15:47)
[2022-05-15] MEDS ORDERED: DEXT 5% / NACL 0.45% 1,000 ML IV ONE (16:10)
[2022-05-15] MEDS ORDERED: NOREPINEPHRINE 4 MG/4 ML VIAL IV ONE (18:40)
[2022-05-15 20:00] VITALS: BP 96/57
[2022-05-15 21:00] VITALS: BP 90/62
[2022-05-15 22:00] VITALS: BP 92/58
[2022-05-15] MEDS ORDERED: VANCOMYCIN PER PHARMACY MC PRN (22:15)
[2022-05-15] MEDS ORDERED: MAGNESIUM HYDROXIDE 2400 MG/30 ML UDC GT PRN (22:40)
[2022-05-15] MEDS ORDERED: ACETAMINOPHEN 325 MG TAB GT PRN (22:40)
[2022-05-15] MEDS ORDERED: ONDANSETRON 4 MG/2 ML VIAL IVP PRN (22:40)
[2022-05-15] MEDS ORDERED: LORazepam 2 MG/ML VIAL IVP PRN (22:40)
[2022-05-15 23:00] VITALS: BP 92/63
[2022-05-15] MEDS: NOREPINEPHRINE 4 MG in DEXTROSE 5% 250 ML IV PRN (23:54)
[2022-05-16] VITALS (15 sets, daily range): BP systolic 82–144; BP diastolic 41–76
[2022-05-16] MEDS ORDERED: PIPERACILLIN/TAZOBACTAM 2.25 GM VIAL IV ONE ×2 (00:04→04:45)
[2022-05-16] MEDS: ALBUTEROL 0.083% 2.5 MG/3 ML NEBU INH SCH ×3 (01:00→14:32)
[2022-05-16] MEDS ORDERED: NOREPINEPHRINE 4 MG/4 ML VIAL IV ONE ×2 (01:05→09:15)
[2022-05-16 01:15] LABS: APPEARANCE,URINE CLOUDY (CLEAR); BILIRUBIN,URINE NEGATIVE (NEGATIVE); BLOOD, URINE 3+ (NEGATIVE); COLOR,URINE YELLOW (YELLOW); LEUKOCYTE ESTERASE ,URINE 3+ (NEGATIVE); NITRITE, URINE NEGATIVE (NEGATIVE); UGLUCOSE NEGATIVE (NEGATIVE)
[2022-05-16] MEDS: NOREPINEPHRINE 4 MG in DEXTROSE 5% 250 ML IV PRN (01:27)
[2022-05-16 01:34] LABS: WBC,URINE TOO MANY TO COUNT /HPF (0-5)
[2022-05-16] MEDS ORDERED: PIPERACILLIN/TAZOBACTAM 3.375 GM in DEXTROSE 5% 50 ML IV SCH ×3 (05:00)
[2022-05-16] MEDS: PIPERACILLIN/TAZOBACTAM 2.25 GM in DEXTROSE 5% 50 ML IV SCH ×6 (05:28→23:35)
[2022-05-16 05:46] LABS: HEMOGLOBIN 10.9 g/dL (12.0-16.0); LYMPHOCYTES # (AUTO) 0.4 K/uL (2.5-16.5); MEAN CORPUSCULAR HEMOGLOBIN 31 pg (27-31); MEAN CORPUSCULAR HGB CONC 33 g/dL (33-37); MONOCYTES # (AUTO) 0.8 K/uL (0.8-1.0); MONOCYTES % (AUTO) 5.2 % (1.7-9.3); NEUTROPHILS # (AUTO) 13.6 K/uL (1.8-7.7); NEUTROPHILS % (AUTO) 91.8 % (42.2-75.2); PLATELET COUNT (AUTO) 110 K/uL (140-450); RED BLOOD CELL COUNT(AUTO) 3.54 MIL/uL (4.20-5.40); RED CELL DISTRIBUTION WIDTH 13.2 % (11.6-13.7)
[2022-05-16 06:28] LABS: ANION GAP 11.8 (8-16); CARBON DIOXIDE 25.5 mmol/L (21-32); CREATININE 0.7 mg/dL (0.6-1.3); POTASSIUM 3.3 mmol/L (3.5-5.1)
[2022-05-16 07:08] LABS: WHITE BLOOD COUNT (AUTO) 14.9 K/uL (4.8-10.8)
[2022-05-16] MEDS: IPRATROPIUM 0.02% 0.5 MG/2.5 ML NEBU INH SCH ×3 (08:02→14:33)
[2022-05-16] MEDS: BACLOFEN 10 MG TAB GT SCH ×3 (09:00→17:00)
[2022-05-16] MEDS: MULTIVIT/MIN/CA/FE/FA 1 TAB GT SCH (09:00)
[2022-05-16] MEDS: DIVALPROEX SPRINKLES 125 MG CAPDR GT SCH ×2 (09:00→21:00)
[2022-05-16] MEDS ORDERED: THIAMINE HCL 100 MG GT SCH (09:00)
[2022-05-16] MEDS: THIAMINE 100 MG TAB GT SCH (09:00)
[2022-05-16] MEDS: GABAPENTIN 100 MG CAP GT SCH ×2 (09:00→21:00)
[2022-05-16] MEDS: risperiDONE 1 MG TAB GT SCH ×2 (09:00→21:00)
[2022-05-16] MEDS ORDERED: LORazepam 2 MG/ML VIAL IVP PRN (12:10)
[2022-05-16] MEDS: VANCOMYCIN 750 MG in DEXTROSE 5% 250 ML IV SCH (12:10)
[2022-05-16] MEDS: KCL 20 MEQ/WATER INJ PREMIX 200 ML IV SCH ×2 (15:25→17:37)
[2022-05-16] MEDS: OLANZapine 2.5 MG TAB GT SCH (21:00)
[2022-05-16] MEDS: SERTRALINE 50 MG TAB GT SCH (21:00)
[2022-05-16] MEDS: SENNA 8.6 MG TAB GT SCH (21:00)
[2022-05-17] VITALS: BP 125/63
[2022-05-17 04:00] VITALS: BP 100/70
[2022-05-17] MEDS: VANCOMYCIN 750 MG in DEXTROSE 5% 250 ML IV SCH (04:24)
[2022-05-17 05:45] LABS: BASOPHILS % (AUTO) 0.1 % (0.0-2.0); EOSINOPHILS % (AUTO) 0.2 % (0.0-4.0); HEMATOCRIT 32.2 % (36-48); HEMOGLOBIN 10.7 g/dL (12.0-16.0); LYMPHOCYTES # (AUTO) 0.6 K/uL (2.5-16.5); LYMPHOCYTES % (AUTO) 8.4 % (20.5-51.1); MEAN CORPUSCULAR HEMOGLOBIN 30 pg (27-31); MEAN CORPUSCULAR HGB CONC 33 g/dL (33-37); MEAN CORPUSCULAR VOLUME 91.4 fL (80-94); MONOCYTES # (AUTO) 0.9 K/uL (0.8-1.0); MONOCYTES % (AUTO) 11.9 % (1.7-9.3); NEUTROPHILS # (AUTO) 5.9 K/uL (1.8-7.7); NEUTROPHILS % (AUTO) 79.4 % (42.2-75.2); PLATELET COUNT (AUTO) 77 K/uL (140-450); RED BLOOD CELL COUNT(AUTO) 3.52 MIL/uL (4.20-5.40); RED CELL DISTRIBUTION WIDTH 13.1 % (11.6-13.7); WHITE BLOOD COUNT (AUTO) 7.4 K/uL (4.8-10.8)
[2022-05-17] MEDS ORDERED: PIPERACILLIN/TAZOBACTAM 2.25 GM VIAL IV ONE (05:45)
[2022-05-17] MEDS: PIPERACILLIN/TAZOBACTAM 2.25 GM in DEXTROSE 5% 50 ML IV SCH ×4 (05:50→23:06)
[2022-05-17 07:40] LABS: ALBUMIN 1.9 g/dL (3.4-5.0); CREATININE 0.6 mg/dL (0.6-1.3); TOTAL BILIRUBIN 0.7 mg/dL (0.0-1.0)
[2022-05-17 08:00] VITALS: BP 95/63
[2022-05-17] MEDS: IPRATROPIUM 0.02% 0.5 MG/2.5 ML NEBU INH SCH ×3 (08:01→19:00)
[2022-05-17] MEDS: ALBUTEROL 0.083% 2.5 MG/3 ML NEBU INH SCH ×3 (08:01→19:00)
[2022-05-17 08:11] LABS: ANION GAP 12.3 (8-16); CARBON DIOXIDE 24.7 mmol/L (21-32)
[2022-05-17] MEDS: risperiDONE 1 MG TAB GT SCH ×2 (09:40→20:50)
[2022-05-17] MEDS: DIVALPROEX SPRINKLES 125 MG CAPDR GT SCH ×2 (09:40→21:17)
[2022-05-17] MEDS: THIAMINE 100 MG TAB GT SCH (09:40)
[2022-05-17] MEDS: MULTIVIT/MIN/CA/FE/FA 1 TAB GT SCH (09:40)
[2022-05-17] MEDS: BACLOFEN 10 MG TAB GT SCH ×4 (09:40→18:51)
[2022-05-17] MEDS: ENOXAPARIN 40 MG/0.4 ML SYR SUBQ SCH (09:40)
[2022-05-17] MEDS: GABAPENTIN 100 MG CAP GT SCH ×2 (09:40→20:49)
[2022-05-17] MEDS: PANTOPRAZOLE 40 MG INJ VIAL IVP SCH (09:49)
[2022-05-17 12:00] VITALS: BP 91/64
[2022-05-17] MEDS: DEXT 5% / NACL 0.45% 1,000 ML IV SCH ×2 (12:32→23:06)
[2022-05-17] MEDS ORDERED: POTASSIUM CHLORIDE 40 MEQ, LIDOCAINE 1% 25 MG in NACL 0.9% 250 ML IV SCH (13:00)
[2022-05-17 16:00] VITALS: BP 123/74
[2022-05-17] MEDS ORDERED: CRUSHER, PILL MC ONE (18:05)
[2022-05-17] MEDS ORDERED: CALCIUM ACETATE 667 MG TAB ONE (19:09)
[2022-05-17] MEDS ORDERED: CALCIUM ACETATE 667 MG TAB PO SCH (19:30)
[2022-05-17 20:00] VITALS: BP 110/83
[2022-05-17 20:26] LABS: ANION GAP 11.2 (8-16); CARBON DIOXIDE 25.1 mmol/L (21-32); CREATININE 0.5 mg/dL (0.6-1.3); POTASSIUM 3.3 mmol/L (3.5-5.1)
[2022-05-17] MEDS: SENNA 8.6 MG TAB GT SCH (21:17)
[2022-05-17] MEDS: OLANZapine 2.5 MG TAB GT SCH (21:18)
[2022-05-17] MEDS: SERTRALINE 50 MG TAB GT SCH (21:18)
[2022-05-18] VITALS (9 sets, daily range): BP systolic 90–135; BP diastolic 21–83
[2022-05-18] MEDS: ALBUTEROL 0.083% 2.5 MG/3 ML NEBU INH SCH ×4 (01:00→19:00)
[2022-05-18] MEDS: IPRATROPIUM 0.02% 0.5 MG/2.5 ML NEBU INH SCH ×4 (01:00→19:00)
[2022-05-18] MEDS: PIPERACILLIN/TAZOBACTAM 2.25 GM in DEXTROSE 5% 50 ML IV SCH ×3 (04:40→16:07)
[2022-05-18 06:05] LABS: BASOPHILS % (AUTO) 0.2 % (0.0-2.0); EOSINOPHILS % (AUTO) 0.5 % (0.0-4.0); HEMOGLOBIN 11.1 g/dL (12.0-16.0); LYMPHOCYTES # (AUTO) 0.7 K/uL (2.5-16.5); MEAN CORPUSCULAR HEMOGLOBIN 31 pg (27-31); MEAN CORPUSCULAR HGB CONC 34 g/dL (33-37); MONOCYTES % (AUTO) 14.6 % (1.7-9.3); NEUTROPHILS # (AUTO) 4.8 K/uL (1.8-7.7); NEUTROPHILS % (AUTO) 73.7 % (42.2-75.2); PLATELET COUNT (AUTO) 75 K/uL (140-450); RED BLOOD CELL COUNT(AUTO) 3.58 MIL/uL (4.20-5.40); WHITE BLOOD COUNT (AUTO) 6.5 K/uL (4.8-10.8)
[2022-05-18 07:05] LABS: ANION GAP 9.8 (8-16); CREATININE 0.5 mg/dL (0.6-1.3)
[2022-05-18] MEDS: GABAPENTIN 100 MG CAP GT SCH ×2 (08:45→21:00)
[2022-05-18] MEDS: BACLOFEN 10 MG TAB GT SCH ×3 (08:45→16:07)
[2022-05-18] MEDS: risperiDONE 1 MG TAB GT SCH ×2 (08:46→21:00)
[2022-05-18] MEDS: PANTOPRAZOLE 40 MG INJ VIAL IVP SCH (08:46)
[2022-05-18] MEDS: DIVALPROEX SPRINKLES 125 MG CAPDR GT SCH ×2 (08:47→21:00)
[2022-05-18] MEDS: THIAMINE 100 MG TAB GT SCH (08:49)
[2022-05-18] MEDS: MULTIVIT/MIN/CA/FE/FA 1 TAB GT SCH (08:49)
[2022-05-18] MEDS: ENOXAPARIN 40 MG/0.4 ML SYR SUBQ SCH (08:53)
[2022-05-18 09:12] LABS: POTASSIUM 2.8 mmol/L (3.5-5.1)
[2022-05-18] MEDS ORDERED: POTASSIUM CHL 40 MEQ/ D5-1/2NS 1,000 ML IV SCH (09:20)
[2022-05-18] MEDS ORDERED: KCL 20 MEQ/WATER INJ PREMIX 200 ML IV SCH (09:24)
[2022-05-18] MEDS: DEXT 5% / NACL 0.45% 1,000 ML IV SCH ×2 (09:37→19:00)
[2022-05-18] MEDS: MIDODRINE 5 MG TAB PO SCH (15:32)
[2022-05-18] MEDS ORDERED: POTASSIUM CHLORIDE 10 MEQ TABER PO SCH (16:00)
[2022-05-18] MEDS: SENNA 8.6 MG TAB GT SCH (21:00)
[2022-05-18] MEDS: OLANZapine 2.5 MG TAB GT SCH (21:00)
[2022-05-18] MEDS: SERTRALINE 50 MG TAB GT SCH (21:00)
[2022-05-18] MEDS ORDERED: cefTRIAXone 1,000 MG VIAL ONE (23:03)
[2022-05-19] VITALS (15 sets, daily range): BP systolic 91–111; BP diastolic 44–70
[2022-05-19] MEDS: IPRATROPIUM 0.02% 0.5 MG/2.5 ML NEBU INH SCH ×3 (01:00→12:22)
[2022-05-19] MEDS: ALBUTEROL 0.083% 2.5 MG/3 ML NEBU INH SCH ×3 (01:00→12:23)
[2022-05-19] MEDS: DEXT 5% / NACL 0.45% 1,000 ML IV SCH (04:05)
[2022-05-19] MEDS: MIDODRINE 5 MG TAB PO SCH ×4 (06:00→18:25)
[2022-05-19 06:05] LABS: BASOPHILS % (AUTO) 0.3 % (0.0-2.0); EOSINOPHILS # (AUTO) 0.1 K/uL (0-0.4); EOSINOPHILS % (AUTO) 1.2 % (0.0-4.0); HEMATOCRIT 31.4 % (36-48); HEMOGLOBIN 10.6 g/dL (12.0-16.0); LYMPHOCYTES # (AUTO) 1.3 K/uL (2.5-16.5); LYMPHOCYTES % (AUTO) 18.1 % (20.5-51.1); MEAN CORPUSCULAR HEMOGLOBIN 31 pg (27-31); MEAN CORPUSCULAR HGB CONC 34 g/dL (33-37); MEAN CORPUSCULAR VOLUME 91.7 fL (80-94); MONOCYTES % (AUTO) 14.5 % (1.7-9.3); NEUTROPHILS # (AUTO) 4.6 K/uL (1.8-7.7); NEUTROPHILS % (AUTO) 65.9 % (42.2-75.2); PLATELET COUNT (AUTO) 102 K/uL (140-450); RED BLOOD CELL COUNT(AUTO) 3.42 MIL/uL (4.20-5.40); RED CELL DISTRIBUTION WIDTH 13.1 % (11.6-13.7)
[2022-05-19 06:43] LABS: ANION GAP 8.9 (8-16); CARBON DIOXIDE 27.3 mmol/L (21-32); CREATININE 0.5 mg/dL (0.6-1.3); POTASSIUM 3.2 mmol/L (3.5-5.1)
[2022-05-19] MEDS: DIVALPROEX SPRINKLES 125 MG CAPDR GT SCH (08:36)
[2022-05-19] MEDS: BACLOFEN 10 MG TAB GT SCH ×3 (08:36→16:45)
[2022-05-19] MEDS: MULTIVIT/MIN/CA/FE/FA 1 TAB GT SCH (08:37)
[2022-05-19] MEDS: risperiDONE 1 MG TAB GT SCH (08:37)
[2022-05-19] MEDS: GABAPENTIN 100 MG CAP GT SCH (08:37)
[2022-05-19] MEDS: PANTOPRAZOLE 40 MG INJ VIAL IVP SCH (08:38)
[2022-05-19] MEDS: THIAMINE 100 MG TAB GT SCH (08:38)
[2022-05-19] MEDS: ENOXAPARIN 40 MG/0.4 ML SYR SUBQ SCH (08:38)
[2022-05-19] MEDS ORDERED: THIA-34 GT (09:36)
[2022-05-19] MEDS ORDERED: PRO5 PO (09:36)
[2022-05-19] MEDS ORDERED: ROC1PM IV (09:36)
[2022-05-19] MEDS ORDERED: POTASSIUM CHLORIDE 20% 40 MEQ/15 ML UDC PO SCH (10:00)
== END 2022-05-19 18:45 | DRG 720 ==
LOC: MED 14:15 → MTU 16:17 → MIC 17:50
PROVIDERS: ADMIT Preventive Medicine Preventive Medicine/Occupational Environmental Medicine; ATTEND Preventive Medicine Preventive Medicine/Occupational Environmental Medicine
PROC: 02HV33Z Insertion of Infusion Device into Superior Vena Cava, Percutaneous Approach (ICD-10-PCS; principal; 2022-05-15)
PROC: B548ZZA Ultrasonography of Superior Vena Cava, Guidance (ICD-10-PCS; 2022-05-15)
DX: A41.59 Other Gram-negative sepsis (principal); J96.01 Acute respiratory failure with hypoxia; R65.21 Severe sepsis with septic shock; E43 Unspecified severe protein-calorie malnutrition; J18.9 Pneumonia, unspecified organism; D69.6 Thrombocytopenia, unspecified; E83.51 Hypocalcemia; E88.09 Other disorders of plasma-protein metabolism, not elsewhere classified; N39.0 Urinary tract infection, site not specified; Z20.822 Contact with and (suspected) exposure to COVID-19; F31.9 Bipolar disorder, unspecified; D64.9 Anemia, unspecified; E83.52 Hypercalcemia; E87.5 Hyperkalemia; R73.9 Hyperglycemia, unspecified; R74.01 Elevation of levels of liver transaminase levels; E87.6 Hypokalemia; B96.4 Proteus (mirabilis) (morganii) as the cause of diseases classified elsewhere; Z68.25 Body mass index [BMI] 25.0-25.9, adult; Z78.9 Other specified health status
CPT/HCPCS: 36415; 36600; 71045; 80048; 80053; 81001; 82803; 83605; 84484; 85025; 85384; 85610; 85651; 85730; 86140; 87040; 87081; 87086; 87635-QW; 92526; 93005; 94640; 96361; 96365; 96368; 99291; C9113; J0696; J1650; J2001; J2543; J3370; J3480; J3490; J7030; J7060; J7613; J7644; Q0092